=== PATIENT | female | born 1995 | race African-American/Black ===

== ENCOUNTER 2022-10-01 22:45 | Emergency (ER) ==
[2022-10-01] MEDS ORDERED: Dexamethasone 10 MG/ML VIAL ONE (23:31)
[2022-10-01] MEDS ORDERED: Ibuprofen 100 MG/5 ML UDCUP ONE (23:31)
[2022-10-01] MEDS ORDERED: Acetaminophen 325 MG/10.15 ML UDCUP ONE (23:34)
== END 2022-10-02 00:01 | disposition home or self-care (01) ==
LOC: ERS 22:45
DX: J02.9 Acute pharyngitis, unspecified (principal)
CPT/HCPCS: 99283; J1100